=== PATIENT | male | born 1985 | race Caucasian/White ===

== ENCOUNTER 2017-09-28 20:15 | Emergency (ER) | payer SELFPAY ==
[~2017-09-28] VITALS: Ht 185.4 cm; Wt 89.5 kg
[~2017-09-28 20:15] MED LIST: COLACE100 MG PO
[2017-09-28 20:54] LABS: BASOPHIL (%) 0.6 % (0-1); BASOPHIL COUNT 0.1 K/uL (0-0.1); EOSINOPHIL (%) 0.4 % (0-5); HEMATOCRIT 39.9 % (38.0-50.0); HEMOGLOBIN 13.9 G/DL (12.5-16.6); IMMATURE GRANULOCYTE (%) 0.6 % (0.0-0.7); LYMPHOCYTE COUNT 0.9 K/uL (1.0-2.8); MCH 32.3 PG (29.0-34.0); MCHC 34.8 G/DL (30.0-36.0); MCV 92.6 FL (86-99); MONOCYTE (%) 7.8 % (3-12); MONOCYTE COUNT 0.7 K/uL (0-0.8); NEUTROPHIL (%) 79.6 % (45-76); NEUTROPHIL COUNT 6.8 K/uL (1.8-6.4); PLATELET COUNT 167 K/uL (156-360); RBC DIS.WIDTH-CV 11.6 % (11.8-14.6); RBC DIS.WIDTH-SD 39.5 % (39-53); RED BLOOD COUNT 4.31 M/uL (4.00-5.50); WHITE BLOOD COUNT 8.5 K/uL (4.1-10.2)
[2017-09-28 21:04] LABS: ALBUMIN 4.3 g/dL (3.2-4.8); CHLORIDE 100 mEq/L (99-109); POTASSIUM 3.9 mEq/L (3.7-5.4); SODIUM 138 mEq/L (136-147)
[2017-09-28 21:06] LABS: GLUCOSE 166 mg/dL (70-99)
[2017-09-28 21:07] LABS: TOTAL PROTEIN 8.1 g/dL (6.4-8.3)
[2017-09-28 21:10] LABS: ALKALINE PHOSPHATASE 78 IU/L (3-129); GFR ESTIMATE (CALCULATED) > 59 mL/min/ (58.99-99999)
[2017-09-28 21:11] LABS: UREA NITROGEN (BUN) 7 mg/dL (9-23)
[2017-09-28 21:12] LABS: AST (GOT) 337 IU/L (2-34); DIRECT BILIRUBIN 0.9 mg/dL (0.0-0.3)
[2017-09-28 21:13] LABS: ALT (GPT) 186 IU/L (3-49); LIPASE 208 U/L (1.0-51.0)
[2017-09-28 21:19] LABS: TROP-I INTERPRETATION NEGATIVE; TROPONIN-I < 0.01 ng/mL (0.0-0.30)
[2017-09-28 21:29] LABS: APPEARANCE SL.HAZY ((CLEAR)); BILIRUBIN NEGATIVE; BLOOD NEGATIVE; COLOR AMBER ((YELLOW)); GLUCOSE (STRIP) NEGATIVE; KETONES 20; LEUKOCYTES TRACE; NITRITE NEGATIVE; PROTEIN (STRIP) 100; SPECIFIC GRAVITY 1.024 (1.000-1.030)
[2017-09-28 21:42] LABS: SERUM ETHYL ALCOHOL < 10 mg/dL
[2017-09-28 21:46] LABS: BACTERIA RARE /HPF; EPITHELIAL CELLS RARE /HPF; HYALINE CASTS 20-30 /LPF; MUCUS 4+ /LPF; UCUL ADDED? YES
[2017-09-28 22:59] LABS: AMPHETAMINE NEGATIVE (500 ng/mL); BARBITURATES NEGATIVE (200 ng/mL); BENZODIAZEPINES NEGATIVE (150 ng/mL); BUPRENORPHINE NEGATIVE (10 ng/mL); COCAINE NEGATIVE (150 ng/mL); METHADONE PRESUMPTIVE POSITIVE (200 ng/mL); METHAMPHETAMINE NEGATIVE (500 ng/mL); OPIATES (MORPHINE) NEGATIVE (100 ng/mL); OXYCODONE NEGATIVE (100 ng/mL); PHENCYCLIDINE NEGATIVE (25 ng/mL); PROPOXYPHENE NEGATIVE (300 ng/mL); THC CANNABINOIDS NEGATIVE (50 ng/mL); TRICYCLIC ANTIDEPRESSANTS NEGATIVE (300 ng/mL)
[2017-09-28] MEDS ORDERED: PERCOCET 5/31 TABLET PO (23:18)
[2017-09-28] MEDS ORDERED: IBUPROFEN600 MG PO (23:18)
[2017-09-28 23:52] VITALS: BP 141/93
== END 2017-09-28 23:53 | disposition home or self-care (01) ==
LOC: EME → EDBD 20:15 → EME 20:15
PROVIDERS: Emergency Medicine
DX: R56.9 Unspecified convulsions (principal); R74.0 Nonspecific elevation of levels of transaminase and lactic acid dehydrogenase [LDH]; R55 Syncope and collapse; R42 Dizziness and giddiness; R51 Headache; M54.9 Dorsalgia, unspecified; S20.221A Contusion of right back wall of thorax, initial encounter; W18.39XA Other fall on same level, initial encounter; R00.0 Tachycardia, unspecified; M43.14 Spondylolisthesis, thoracic region; F17.210 Nicotine dependence, cigarettes, uncomplicated
CPT/HCPCS: 70450; 72070; 72100; 80048; 80076; 81003; 83605; 83690; 84484; 85025; 87086; 99281; 99285; G0480; J1885; J2060; J7030